=== PATIENT | male | born 1950 | race Caucasian/White ===

== ENCOUNTER 2020-04-08 15:24 | Inpatient (IN) | payer MEDICARE ==
[~2020-04-08] VITALS: Ht 167.6 cm; Wt 76.1 kg
[~2020-04-08 15:24] MED LIST: ASPIRIN EC81 M1 PO; CLARITIN10 MG PO; LOVASTATIN 20 M20 MG PO; PREVACID15 MG PO; ZANTAC 150MG T150 M1 PO
[2020-04-08 15:26] VITALS: BP 170/63
[2020-04-08 15:46] LABS: ABSOLUTE BASOPHILS 0.1 thou/uL (0.0-0.2); ABSOLUTE EOSINOPHILS 0.2 thou/uL (0.0-0.7); ABSOLUTE MONOCYTES 0.7 thou/uL (0.0-1.2); ABSOLUTE NEUTROPHILS 6.3 thou/uL (1.6-8.1); BASOPHILS 0.6 %; EOSINOPHILS 1.8 %; HEMATOCRIT 45.1 % (42.0-52.0); HEMOGLOBIN 15.5 gm/dL (14.0-18.0); MCH 31.1 pg (26.0-34.0); MCHC 34.4 g/dL (28.0-37.0); MCV 90.4 fL (80.0-100.0); MPV 7.7 fl. (7.2-11.1); NUCLEATED RBCS 0 /100WBC; PLATELET COUNT* 267 thou/uL (150-400); POLYS 61.6 %; RBC 4.99 mil/uL (4.50-6.00); RDW-CV 13.2 % (10.5-14.5); WBC 10.3 thou/uL (4.0-11.0)
[2020-04-08 15:53] LABS: CALCIUM 9.3 mg/dL (8.5-10.1); POTASSIUM 3.4 mmol/L (3.5-5.1)
[2020-04-08 15:56] LABS: APTT 22.8 Seconds (25.0-31.3); PROTIME 10.5 Seconds (9.20-11.50)
[2020-04-08 16:04] LABS: ALBUMIN 3.9 g/dL (3.4-5.0); MAGNESIUM 2.2 mg/dL (1.8-2.4); TOTAL BILIRUBIN 0.3 mg/dL (<0.1-1.0); TOTAL PROTEIN 7.2 g/dL (6.4-8.2)
--- NOTE | 2020-04-08 18:18 | EKG ---
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
[2020-04-08 20:22] VITALS: BP 137/61
[2020-04-09] VITALS (7 sets, daily range): BP systolic 114–162; BP diastolic 52–77
[2020-04-09 06:35] LABS: ALBUMIN 3.5 g/dL (3.4-5.0); ALKALINE PHOSPHATASE 62 U/L (46-116); ANION GAP 7 mmol/L (7-16); BUN 17 mg/dL (7-18); CALCIUM 8.8 mg/dL (8.5-10.1); CHLORIDE 107 mmol/L (98-107); CHOLESTEROL 116 mg/dL (<200); CO2 26 mmol/L (21-32); CREATININE 0.8 mg/dL (0.6-1.3); GLUCOSE 105 mg/dL (70-99); HDL CHOLESTEROL 30 mg/dL (>40); LDL CHOLESTEROL 58 mg/dL (<100); POTASSIUM 3.7 mmol/L (3.5-5.1); SGOT 18 U/L (15-37); SGPT 24 U/L (30-65); SODIUM 140 mmol/L (136-145); TC:HDL 3.9 Ratio (Not establshd); TOTAL BILIRUBIN 0.4 mg/dL (<0.1-1.0); TOTAL PROTEIN 6.8 g/dL (6.4-8.2); TRIGLYCERIDE 143 mg/dL (<150); VLDL 29 mg/dL (<40)
[2020-04-09 06:38] LABS: SERUM ASSESSMENT Clear
[2020-04-09] MEDS ORDERED: PROTONIX 20 MG20 MG PO (14:12)
--- NOTE | 2020-04-09 14:25 | EXE ---
[place] [address] STRESS ECHOCARDIOGRAM Name: DAREN SWEENEY Room: [address] IN .R.#: [id number] Admission: 04/08/20 Attend Phys: Tito Simon Discharge: Date of : 54 Date of Service: 04/09/20 1425 Report #: [id number] THIS REPORT FOR: cc: Teresa Stein,Teresa Abreu,Homar Rand MD [facility] ~ APPROVED REPORT Study performed: 04/09/2020 13:00:15 Exam: Dobutamine Stress Echo Indication: Chest pain Patient Location: In-Patient Stress Nurse: Kimberly Mejía RN Room #: ER Supervising Physician: Homar Atkinson MD Ht: 5 ft 6 in HR: 69 bpm BP: 144/67 mmHg Medical History Cardiac Risk Factors: Age, , Hyperlipidemia, HTN, FHX of CAD, Tobacco History (Current/Recent) Procedure The patient underwent a Pharmacological Stress Test using Dobutamine. Blood pressure, heart rate, and EKG were monitored. An Echocardiogram was performed by precision agriculture technician in four stages in quad fashion. At peak stress, four selected images were obtained and placed side by side with resting images for comparison. Stress Test Details Stress Test: Pharmacological Stress Test using Dobutamine. Reason for pharmacologic stress test: physical limitation. HR Resting HR: 69 bpm Max Heart Rate (APMHR): 153 bpm Max HR Achieved: 138 bpm Target HR (85% APMHR): 130 bpm % of APMHR: 90 Recovery HR: 82 bpm HR response to stress: Normal HR response to stress BP Resting BP: 144/67 [place] [address] STRESS ECHOCARDIOGRAM Name: DAREN SWEENEY Room: [address]#: [id number] Admission: 04/08/20 Attend Phys: Tito Simon Discharge: Date of : 54 Date of Service: 04/09/20 1425 Report #: [id number] Max BP: 167/50 mmHg Recovery BP: 152/55 mmHg BP response to stress: Normal blood pressure response to stress. ECG Resting ECG: sinus rhythm; normal EKG Stress ECG: No ischemic ST-T changes noted Arrhythmia: Runs of 4-10 beats of nonsustained ventricular tachycardia noted in the latter stage of dobutamine infusion Recovery ECG: No ischemic ST-T alterations noted Clinical Reason for Termination: Completed protocol Pre-Stress Echo The resting Echocardiogram showed normal left ventricular contractility with an estimated Ejection Fraction of about 60-65%. Normal wall motion in all segments on baseline images. Post-Stress Echo The stress Echocardiogram showed normal left ventricular contractility with an estimated Ejection Fraction of about >70%. Normal augmentation of wall motion in all segments on post stress images. Conclusion Clinical Response: Indeterminant Stress ECG Response: Non-ischemic Stress Echo Images: Non-ischemic Other Information Study Quality: Fair <ELECTRONICALLY SIGNED> By: Homar Atkinson MD, [facility] 04/09/20 1425 1425 1425 Homar Atkinson MD, FACC /INF
--- NOTE | 2020-04-09 14:29 | 2DMMODE ---
[place] [address] 2 D/M-MODE ECHOCARDIOGRAM Name: DAREN SWEENEY Room: [address] IN [facility].#: [id number] Admission: 04/08/20 Attend Phys: Tito Simon Discharge: Date of : 54 Date of Service: 04/09/20 1429 Report #: [id number] THIS REPORT FOR: cc: Teresa Stein,Teresa Abreu,Homar Rand MD [facility] ~ APPROVED REPORT Study performed: 04/09/2020 11:41:53 EXAM: Comprehensive 2D, Doppler, and color-flow Echocardiogram / Bubble Sudy Patient Location: In-Patient Room #: ER BSA: 1.87 HR: 66 bpm BP: 141/61 mmHg Other Information Study Quality: Good Indications Abnormal ECG CVA/TIA Echo Enhancing Agent Indication: Rule out Shunt Agent(s) / Amount(s) Used: Agitated Saline 10 cc 2D Dimensions IVSd: 10.84 (7-11mm) LVOT Diam: 20.34 (18-24mm) LVDd: 43.40 mm PWd: 10.65 (7-11mm) Ascending Ao: 31.05 (22-36mm) LVDs: 23.76 (25-40mm) Aortic Root: 31.15 mm Volumes Left Atrial Volume (Systole) LA ESV Index: 18.10 mL/m2 Aortic Valve AoV Peak Antoine.: 1.65 m/s AO Peak Gr.: 10.89 mmHg LVOT Max P.52 mmHg AO Mean Gr.: 5.24 mmHg LVOT Mean P[place]86 [place] [address] 2 D/M-MODE ECHOCARDIOGRAM Name: DAREN SWEENEY Room: [address] IN ..#: [id number] Admission: 04/08/20 Attend Phys: Tito Simon Discharge: Date of : 54 Date of Service: 04/09/20 1429 Report #: [id number] LVOT Max V: 1.46 m/s AO V2 VTI: 28.68 cm LVOT Mean V: 0.90 m/s SHAISTA (VTI): 3.38 cm2 LVOT V1 VTI: 29.87 cm Mitral Valve E/A Ratio: 0.90 MV Decel. Time: 258.99 ms MV E Max Antoine.: 0.65 m/s MV PHT: 75.11 ms MVA (PHT): 2.93 cm2 TDI E/Lateral E': 5.91 E/Medial E': 7.22 Medial E' Antoine.: 0.09 m/s Lateral E' Antoine.: 0.11 m/s Pulmonary Valve PV Peak Antoine.: 1.15 m/s PV Peak Gr.: 5.31 mmHg Left Ventricle The left ventricle is normal size. There is normal LV segmental wall motion. There is normal left ventricular wall thickness. Left ventricular systolic function is normal. The left ventricular ejection fraction is within the normal range. LVEF is 60-65%. Grade I - abnormal relaxation pattern. Right Ventricle The right ventricle is normal size. The right ventricular systolic function is normal. Atria The left atrium size is normal. Injection of bubbles documented no interatrial shunt. The right atrium size is normal. Aortic Valve Mild aortic valve sclerosis. Mild aortic regurgitation. There is no aortic valvular stenosis. Mitral Valve Mild mitral annular calcification. There is no mitral valve regurgitation noted. No evidence of mitral valve stenosis. Tricuspid Valve The tricuspid valve is normal in structure. There is no tricuspid [place] [address] 2 D/M-MODE ECHOCARDIOGRAM Name: DAREN SWEENEY Room: [address]#: [id number] Admission: 04/08/20 Attend Phys: Tito Simon Discharge: Date of : 54 Date of Service: 04/09/20 1429 Report #: [id number] Pulmonic Valve The pulmonary valve is normal in structure. There is no pulmonic valvular regurgitation. Great Vessels The aortic root is normal in size. IVC is normal in size and collapses >50% with inspiration. Pericardium There is no pericardial effusion. <Conclusion> The left ventricle is normal size. There is normal left ventricular wall thickness. Left ventricular systolic function is normal. The left ventricular ejection fraction is within the normal range. LVEF is 60-65%. Grade I - abnormal relaxation pattern. The right ventricle is normal size. The left atrium size is normal. Mild aortic valve sclerosis. Mild aortic regurgitation. There is no aortic valvular stenosis. Mild mitral annular calcification. There is no mitral valve regurgitation noted. No evidence of mitral valve stenosis. The tricuspid valve is normal in structure. IVC is normal in size and collapses >50% with inspiration. There is no pericardial effusion. There is normal LV segmental wall motion. Injection of bubbles documented no interatrial shunt. <ELECTRONICALLY SIGNED> By: Homar Atknison MD, FACC 04/09/20 1429 1429 1429 Homar Atkinson MD, FACC /INF
[2020-04-10] VITALS: BP 107/57
[2020-04-10 02:06] LABS: GLYCOHEMOGLOBIN (HGB A1C) 5.5 % (4.8-5.6)
[2020-04-10 04:00] VITALS: BP 130/61
[2020-04-10 07:51] VITALS: BP 131/57
[2020-04-10] MEDS ORDERED: LIPITOR40 MG PO (09:45)
[2020-04-10] MEDS ORDERED: PLAVIX 75 MG TA75 M1 PO (09:45)
[2020-04-10] MEDS ORDERED: LISINOPRIL2.5 MG PO (11:31)
[2020-04-10 12:24] VITALS: BP 131/57
[2020-04-10 12:36] VITALS: BP 131/57
--- NOTE | 2020-04-23 14:56 | EEG ---
[address] [address] EEG STUDY REPORT Name: DAREN SWEENEY Room: [address] IN M.R.#: [id number] Admission: 04/08/20 Attend Phys: Aldo Sweeney Discharge: 04/10/20 Date of : 54 Report #: [id number] THIS REPORT FOR: cc: Teresa Stein Anna S. DO ~ Marito Campbell MD DATE OF SERVICE: 04/09/2020 This patient is being evaluated for dizziness. EEG was done by placing the electrode by standard 10-20 system of electrode placement. Both referential and sequential montages were used for recording. Background activity in this patient's EEG is about 9 Hz and 30 microvolts. A lot of eye movement artifact is present. The patient went to sleep that is associated with bilateral slowing and vertex sharp waves. Photic stimulation is unremarkable. IMPRESSION: A lot of eye movement artifact is present, but otherwise the electroencephalogram appeared unremarkable. <ELECTRONICALLY SIGNED> By: Marito Campbell MD 04/23/20 1456 1811 1842Pfredrick Campbell MD /nt
== END 2020-04-10 12:36 | disposition home or self-care (01) | DRG 65 ==
LOC: M.ERS 15:24 → M.TBA-ER 16:36 → M.2W 04-09 12:30
PROVIDERS: Emergency Medicine Emergency Medical Services; ADMIT Internal Medicine; ATTEND Internal Medicine
DX: I63.9 Cerebral infarction, unspecified (principal); A69.20 Lyme disease, unspecified; G81.94 Hemiplegia, unspecified affecting left nondominant side; R07.89 Other chest pain; Z20.822 Contact with and (suspected) exposure to COVID-19; K21.9 Gastro-esophageal reflux disease without esophagitis; E78.5 Hyperlipidemia, unspecified; F17.210 Nicotine dependence, cigarettes, uncomplicated; Z83.6 Family history of other diseases of the respiratory system; Z80.1 Family history of malignant neoplasm of trachea, bronchus and lung; Z82.49 Family history of ischemic heart disease and other diseases of the circulatory system